=== PATIENT | male | born 1960 | race Asian ===

== ENCOUNTER 2024-02-26 09:56 | Outpatient (CLI) | payer BC | END 2024-02-26 09:57 | disposition home or self-care (01) | LOC: BICRAD 09:56 | PROVIDERS: ATTEND Physician Assistant | DX: M79.644 Pain in right finger(s) (principal) ==

== ENCOUNTER 2024-11-16 11:45 | Outpatient (CLI) | payer BC | END 2024-11-16 11:46 | disposition home or self-care (01) | LOC: PET 11:45 | PROVIDERS: ATTEND Internal Medicine | DX: C49.A2 Gastrointestinal stromal tumor of stomach (principal) | CPT/HCPCS: 78815; A9552 ==